=== PATIENT | female | born 1955 | race Caucasian/White ===

== ENCOUNTER 2019-01-24 06:14 | Day surgery (SDC) | payer MEDICARE ==
[~2019-01-24] VITALS: Ht 157.5 cm; Wt 105.3 kg
[~2019-01-24 06:14] MED LIST: ALPR.25 PO; ALPR.5; AMLO5 PO; ASPI325 PO; ASPI81CH PO; ATOR40TA PO; ATOR80 PO; Amlodipine Besyl5 MG PO; Ativan0.5 MG PO; Bactrim Ds Tab1 EACH PO; CHOL10002 PO; CITA20; Coenzyme Q1050 MG PO; DOCSEN PO; Dok Plus Table1 EACH PO; HYDACE5325 PO; HYDCHL12.5 PO; Hair, Skin & N1 EACH PO; Isosorbide Mono30 MG PO; K-Dur20 MEQ PO; Keflex500 MG PO; LISI5; LISI5 PO; METO50 PO; METO50ER; MIRT15ST MM; Metoprolol Tart50 MG PO; NITR.4SL SL; OXYC5 PO; PRED10 PO; PRED20 PO; Pain Relief500 MG PO; Percocet 10-321 EACH PO; RXCLIN PO; Tylenol325 MG PO; UBID10 PO; UBID100 PO; VENL75ER PO; Zofran Odt4 MG SL
== END 2019-01-24 10:44 | disposition home or self-care (01) ==
LOC: ORSCSDS 06:14
PROVIDERS: Orthopaedic Surgery
PROC: 0LN80ZZ Release Left Hand Tendon, Open Approach (ICD-10-PCS; principal; 2019-01-24 07:30)
PROC: 0LB60ZZ Excision of Left Lower Arm and Wrist Tendon, Open Approach (ICD-10-PCS; 2019-01-24 07:30)
PROC: 0LU807Z Supplement Left Hand Tendon with Autologous Tissue Substitute, Open Approach (ICD-10-PCS; 2019-01-24 07:30)
PROC: 0LX80ZZ Transfer Left Hand Tendon, Open Approach (ICD-10-PCS; 2019-01-24 07:30)
DX: M65.322 Trigger finger, left index finger (principal); M18.12 Unilateral primary osteoarthritis of first carpometacarpal joint, left hand; I10 Essential (primary) hypertension; E78.5 Hyperlipidemia, unspecified; F41.8 Other specified anxiety disorders; I25.10 Atherosclerotic heart disease of native coronary artery without angina pectoris; I25.2 Old myocardial infarction; Z79.899 Other long term (current) drug therapy
CPT/HCPCS: C1713; J1100; J1885; J2250; J2370; J2405; J2704; J2710; J2765; J2795; J3010; J3370; J7120

== ENCOUNTER → 2022-10-19 | Outpatient (CLI) | payer MEDICARE ==
[2022-10-19 08:02] LABS: BASOPHILS ABSOLUTE AUTO 0.06 K/mm3 (0.00-0.23); BASOPHILS PERCENT AUTO 1 % (0-2); EOSINOPHILS ABSOLUTE AUTO 0.19 K/mm3 (0.00-0.68); EOSINOPHILS PERCENT AUTO 3 % (0-6); Hematocrit 43.1 % (33.0-51.0); Hemoglobin 14.8 g/dL (11.5-16.0); IMMATURE GRAN ABSOLUTE AUTO 0.02 K/mm3 (0.00-0.10); IMMATURE GRAN PERCENT AUTO 0 % (0-1); LYMPHOCYTES ABSOLUTE AUTO 1.32 K/mm3 (0.84-5.20); LYMPHOCYTES PERCENT AUTO 19 % (21-46); MONOCYTES ABSOLUTE AUTO 0.54 K/mm3 (0.16-1.47); MONOCYTES PERCENT AUTO 8 % (4-13); Mean Corpuscular HGB Conc 34.3 g/dL (31.5-36.5); Mean Corpuscular Volume 93 fL (80-100); Mean Platelet Volume 11.4 fL (9.1-12.4); NEUTROPHILS ABSOLUTE AUTO 4.92 K/mm3 (1.96-9.15); NEUTROPHILS PERCENT AUTO 70 % (41-73); Platelet Count 237 K/mm3 (150-400); RDW Coefficient Variation 12.4 % (11.7-14.2); RDW Standard Deviation 42.5 fL (35.1-46.3); Red Blood Cell Count 4.62 M/mm3 (3.80-5.20); White Blood Cell Count 7.05 K/mm3 (4.00-11.30)
[2022-10-19 09:01] LABS: Alanine Aminotransfer (ALT/SGP 20 U/L (12-78); Albumin, Blood 3.7 g/dL (3.4-5.0); Albumin/Globulin Ratio 1.1 (0.8-1.8); Alk Phos 76 U/L (50-136); Anion Gap 5 mmol/L (6-16); Aspartate Aminotrans (AST/SGOT 12 U/L (12-37); Bilirubin, Total 0.4 mg/dL (0.1-1.0); Blood Urea Nitrogen 9 mg/dL (8-24); Bun/Creatinine Ratio 12.7 (12.0-20.0); CO2, Blood 27 mmol/L (21-32); Calcium, Blood 8.8 mg/dL (8.5-10.1); Chloride, Blood 109 mmol/L (98-108); Cholesterol 146 mg/dL (50-200); Creatinine, Blood 0.71 mg/dL (0.40-1.00); Globulin, Blood 3.3 g/dL (2.2-4.0); Glomerular Filtration Rate 93 (60-); Glucose, Blood 118 mg/dL (70-99); HDL Cholesterol 49 mg/dL (>39); LDL/HDL RATIO 1.5; Low Density Lipoprotein Chol 75 mg/dL (0-110); Potassium, Blood 3.5 mmol/L (3.5-5.5); Sodium, Blood 141 mmol/L (136-145); Triglycerides 112 mg/dL (30-160); Very Low Density Lipoprot Chol 22 mg/dL (6-32)
== END | disposition home or self-care (01) ==
LOC: PLD 07:21 → LAB SHORT 07:21 → EDSTATUS 14:46
PROVIDERS: Family Medicine
DX: D22.4 Melanocytic nevi of scalp and neck (principal); E04.1 Nontoxic single thyroid nodule; E78.49 Other hyperlipidemia; R73.9 Hyperglycemia, unspecified
CPT/HCPCS: 36415; 80053; 80061; 83036; 84443; 85025; 88305

== ENCOUNTER 2025-02-04 07:52 | Day surgery (SDC) | payer MEDICARE ==
[2025-02-04] VITALS (12 sets, daily range): BP systolic 93–140; BP diastolic 49–92
[~2025-02-04] VITALS: Ht 157.5 cm; Wt 92.8 kg
[~2025-02-04 07:52] MED LIST changes: +ALPR.5 PO; +ATOR20 PO; +CO Q10100 MG PO; +ESCI20 PO; +OLME20 PO; +POTA10T PO; +Prednisone10 MG PO; +VITAMIN D31000 UNI1 PO
--- NOTE | 2025-02-04 10:00 | NUR ---
Pre-Op teaching done. Pt verbalizes understanding. Ambulatory in Day Surgery. History, Chart, Medications and Allergies reviewed before start of procedure. Patient confirms NPO status and agrees with scheduled surgery. Patient States Post-Procedure ride home has been arranged.
[2025-02-04] MEDS ORDERED: Bupivacaine 0.5% W/EPI 1:200000 SDV 30 ML Vial ONE (10:23)
[2025-02-04] MEDS ORDERED: FentaNYL Citrate 50 MCG/ML 2 ML Injection ONE ×2 (10:28→12:02)
[2025-02-04] MEDS ORDERED: Rocuronium Bromide 10 MG/ML 5ML Injection IV ONE (10:29)
[2025-02-04] MEDS ORDERED: Ondansetron HCl 2 MG / ML 2ML Vial ONE (10:33)
[2025-02-04] MEDS ORDERED: ePHEDrine Sulfate 50 MG/ML 1ML Injection ONE (10:50)
[2025-02-04] MEDS ORDERED: Phenylephrine HCl 100 MCG/ML-NS 10MLSYR (1MG/10ML) ONE (10:51)
--- NOTE | 2025-02-04 10:59 | NUR ---
02/04/25 1059 Maria R Chiang NO PREOP ANTIBIOTICS ORDERED PER .
[2025-02-04] MEDS ORDERED: Albuterol 2.5 MG/3 ML VIAL INH PRN (11:05)
[2025-02-04] MEDS ORDERED: Metoclopramide HCl 5MG / ML 2ML Vial IV PRN (11:05)
[2025-02-04] MEDS ORDERED: HYDROmorphone HCl/Pf 1MG SYR IV PRN ×2 (11:05)
[2025-02-04] MEDS ORDERED: FentaNYL Citrate 50 MCG/ML 2 ML Injection IV PRN ×2 (11:05→11:10)
[2025-02-04] MEDS ORDERED: Sugammadex Sodium 200 MG/2ML SDV (100 MG/ML) ONE (11:23)
[2025-02-04] MEDS ORDERED: OxyCODONE 5 mg/Acetamin 325 mg TABLET PO PRN (11:50)
--- NOTE | 2025-02-04 13:22 | NUR ---
TO STEP POST PROCEDURE. MILD PAIN, 02/15. UPPER ABDOMEN INCISION CDI, CLOSED WITH SURGICAL GLUE. KATHERINE PO WELL. 1 PERCOCET GIVEN. UP TO BEDSIDE WITH STEADY GAIT. DC'D IV INTACT. NO NAUSEA. DC'D VIA WC TO PRIVATE CAR WITH [facility] NUR[facility].
== END 2025-02-04 13:15 | disposition home or self-care (01) ==
LOC: ORSCMMR 07:52 → ORD 09:30 → ORSCMMR 13:15
PROVIDERS: Surgery
PROC: 0WQF0ZZ Repair Abdominal Wall, Open Approach (ICD-10-PCS; principal; 2025-02-04 09:30)
DX: K43.2 Incisional hernia without obstruction or gangrene (principal); I10 Essential (primary) hypertension; E11.9 Type 2 diabetes mellitus without complications; I25.2 Old myocardial infarction; I25.10 Atherosclerotic heart disease of native coronary artery without angina pectoris; E66.9 Obesity, unspecified; Z68.37 Body mass index [BMI] 37.0-37.9, adult; Z79.899 Other long term (current) drug therapy; M35.3 Polymyalgia rheumatica; F41.9 Anxiety disorder, unspecified; F32.A Depression, unspecified; I51.81 Takotsubo syndrome
CPT/HCPCS: A9270; J1720; J2371; J2405; J2704; J3010; J7120